=== PATIENT | male | born 1975 | race Caucasian/White ===

== ENCOUNTER 2019-06-21 16:29 | Emergency (ER) | payer MEDICAID, SELFPAY ==
[2019-06-21 16:30] VITALS: BP 169/119; PULSE 149; RESP 22; TEMP 36.3; O2SAT 92; BMI 28.9
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
[2019-06-21] MEDS: 0.9% Normal Saline 1,000 ML 1000 ML IV (17:13)
[2019-06-21] MEDS: Naloxone 2 MG/2 ML Syringe 1 MG IV (17:13)
[2019-06-21 17:19] LABS: Bacteria 0 SEEN /hpf (None Seen); Mucous, Urine 0 SEEN /hpf (<or=2+); Red Blood Cells-Urine 0 SEEN /hpf (0-5); White Blood Cells 0 SEEN /hpf (0-5)
[2019-06-21 17:20] VITALS: BP 143/108; PULSE 149; RESP 17; O2SAT 100
--- NOTE | 2019-06-21 17:20 | ED.RN ---
PATIENT ADMINISTERED 1 MG NARCAN IV, PATIENT WAKES UP, ALERT AND APPROPRIATE. DR. HERRERA AWARE
[2019-06-21 17:25] LABS: Absolute Lymphocyte Count 3.38 X10^3/uL (0.83-4.51); Absolute Neutrophil Count 13.7 X10^3/uL (2.0-7.7); Basophil# 0.07 X10^3/uL; Basophil% 0.4 % (0-1); Eosinophil# 0.03 X10^3/uL; Eosinophils% 0.2 % (0-5); Hematocrit 38.1 % (40-54); Lymphocyte # 3.38 X10^3/ul (4.0); Lymphocyte % 18.4 % (19-41); Mean Corp Hgb Conc 31.5 g/dL (32-36); Mean Corpuscular Hgb 27.3 pg (27.0-32.0); Mean Corpuscular Volume 86.8 fL (80-94); Mean Platelet Vol. 11.5 fl (6.2-12.0); Monocyte# 0.99 X10^3/uL; Monocyte% 5.4 % (0-10); NRBC Flagged by Analyzer 0 % (0-5); Neutrophil # 13.74 X10^3/uL (2.7-7.7); Neutrophil % 74.7 % (47-70); Platelet Count 370 K/mm3 (150-450); RBC Distribution Width CV 14.6 % (11.6-14.6); RBC Distribution Width SD 44.6 fl (35.1-43.9); Red Blood Count 4.39 M/mm3 (4.6-6.2); White Blood Count 18.4 K/mm3 (4.4-11.0)
[2019-06-21 17:31] LABS: Color, Urine Yellow (Yellow); Glucose, Dipstick 50 mg/dl (Normal); Ketone-Dipstick Negative (Negative); Leukocyte Esterase-Dipstick Negative /ul (Negative); Nitrite-Dipstick Negative (Negative); Occult Blood-Urine Negative /ul (Negative); Protein-Dipstick 100 mg/dl (Negative); Urine Bilirubin Dipstick Negative (Negative); Urine Clarity Sl. Cloudy (Clear); Urine Urobilinogen Normal (Normal)
[2019-06-21 17:32] LABS: International Normalized Ratio 1.2; Prothrombin Time (Protime)PT. 14.3 SECONDS (11.7-14.9)
[2019-06-21 17:33] LABS: Partial Thromboplast Time 28.1 Seconds (24.1-36.2)
--- NOTE | 2019-06-21 17:35 | ED.RN ---
PATIENT REQUESTS TO BE DISCHARGED HOME AND NOT TRANSFERRED TO [facility]. PATIENT MADE AWARE BY DR. HERRERA THAT DO TO HIS CONDITION IT IS IN HIS BEST INTEREST TO BE TRANSFERRED.
[2019-06-21 17:36] LABS: Squamous Epithelial Cells - UA 0-5 SEEN /hpf (0-5)
[2019-06-21 17:37] LABS: Amphetamine Urine VISTA NEGATIVE (<1000 ng/mL); Barbiturate Urine VISTA NEGATIVE (< 200 ng/mL); Benzodiazepine Urine VISTA NEGATIVE (< 200 ng/mL); Cocaine Urine VISTA NEGATIVE (< 300 ng/mL); Ecstacy Urine VISTA NEGATIVE (< 500 ng/mL); Methadone Urine VISTA NEGATIVE (< 300 ng/mL); PCP Urine VISTA NEGATIVE (< 25 ng/mL); THC Urine VISTA POSITIVE (< 50 ng/mL); Vista UDS pH Range 6
[2019-06-21 17:46] LABS: ALB/GLOB Ratio 1.1 RATIO (0.9-2.4); AST(SGOT) 11 U/L (15-37); Alanine Aminotransfer ALT/SGPT 15 U/L (16-61); Albumin, Serum 3.5 g/dL (3.2-5.0); Alkaline Phosphatase 92 U/L (45-117); Anion Gap 9 (5-15); BUN 18 mg/dL (7-18); BUN/Creat Ratio 9.7 RATIO (10-20); Calcium,Total 7.7 mg/dL (8.5-10.1); Chloride 101 mmol/L (98-107); Creatinine, Serum 1.86 mg/dL (0.70-1.30); EST Glomerular Filtration Rate 43 mL/min (>60); Est Glom Filt Rate - Afr Amer 51 mL/min (>60); Estimated Creatinine Clearance 61.84 ml/min; Globulin 3.3 g/dL (2.2-4.2); Glucose 285 mg/dL (74-106); Potassium 3.5 mmol/L (3.5-5.1); Protein, Total 6.8 g/dL (6.4-8.2); Sodium Level 134 mmol/L (136-145)
--- NOTE | 2019-06-21 17:46 | ED.DEP ---
ED Disposition - Plan for ED Patient: Instructions: ED Abuse Narcotic Referrals: Franny Jordan [NON-STAFF] -
[2019-06-21 17:49] LABS: Alcohol, Blood (Medical)-Serum < 3.0 mg/dL
--- NOTE | 2019-06-21 17:59 | ED.RN ---
IV SITES DC'ED, CATHETERS INTACT, SMALL GAUZE DRESSINGS PLACED. AMA PAPERS SIGNED BY PATIENT. PATIENT IS ALERT AND ORIENTED X3, RESPIRATIONS ARE EVEN AND UNLABORED, PATIENT DRESSES SELF AND AMBULATES OUT OF ROOM WITHOUT DIFFICULTY.
[2019-06-21 18:04] VITALS: BP 151/100; PULSE 137; RESP 20; O2SAT 100
[2019-06-21 18:19] LABS: Lactic Acid 2.7 mmol/L (0.4-1.9)
[2019-06-21 21:17] LABS: Reflex Lactate? Y
[2019-06-22 14:01] LABS: Bedside Glucose 301 mg/dL (70-110)
== END 2019-06-21 18:05 | disposition left against medical advice (07) ==
LOC: ED 17:59
PROVIDERS: Emergency Provider Emergency Medicine
DX: G93.40 Encephalopathy, unspecified (principal); D72.829 Elevated white blood cell count, unspecified; F11.10 Opioid abuse, uncomplicated; K44.9 Diaphragmatic hernia without obstruction or gangrene; N28.1 Cyst of kidney, acquired; V43.52XA Car driver injured in collision with other type car in traffic accident, initial encounter; Y92.410 Unspecified street and highway as the place of occurrence of the external cause
CPT/HCPCS: 51702; 70450; 71260; 72125; 74177; 80053; 80307; 80320; 81001; 82962; 83605; 84443; 84484; 85025; 85610; 85730; 93005; 96361; 96374; 99285; J7030; Q9967; A4216; G0480